=== PATIENT | female | born 1970 | race American Indian/Alaskan Native ===

== ENCOUNTER → 2020-04-20 16:07 | Outpatient (CLI) | payer BC, SELFPAY ==
[2020-04-20 17:45] LABS: Coronavirus 19 IgG Antibody Negative (Negative); Coronavirus 19 IgM Antibody Negative (Negative)
== END ==
PROVIDERS: Visit Provider Internal Medicine Gastroenterology
DX: Z01.818 Encounter for other preprocedural examination (principal); Z11.52 Encounter for screening for COVID-19; Z12.11 Encounter for screening for malignant neoplasm of colon
CPT/HCPCS: 36415; 86328

== ENCOUNTER 2020-04-23 08:57 | Day surgery (SDC) | payer BC, SELFPAY ==
[2020-04-17 10:03] VITALS: BMI 20.5
[2020-04-23] VITALS (7 sets, daily range): BP systolic 102–126; BP diastolic 60–78; PULSE 73–92; RESP 12–18; TEMP 36.2–36.4; O2SAT 97–100
--- NOTE | 2020-04-23 09:46 | P.PCN_ITS ---
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 The patient did have a colonoscopy in November 2016 (Dr. Orlando Thomas) which was performed previously because of iron deficiency anemia. At that time, she did have a 10 mm hyperplastic polyp removed from the rectum. She also had some small areas of focal mucosal bleeding that appeared to be related to small angiodysplasias and these were treated with APC coagulation at that time. The patient reports no abdominal pain, weight loss, change in her bowel habits or rectal bleeding. She reports no family history of colon cancer. Procedure: Prior to the procedure, a history and physical exam was performed, and patient's medications and allergies were reviewed. The risks, benefits and alternatives of the sedation and procedure were discussed with the patient. All questions were answered and informed consent was obtained. The patient was brought to the procedure room. Patient identification and proposed procedure were verified by the physician and the nurse. The patient was placed in a left lateral decubitus position and the scope was passed under direct vision. Throughout the procedure, the patient's blood pressure, pulse, and oxygen saturations were monitored continuously. The colonoscopy was accomplished without difficulty. The patient tolerated the procedure well. Findings: On digital rectal examination there was normal rectal tone. There were no external hemorrhoids. The colonoscope was introduced through the anal canal to the rectum and advanced to the cecum. The ileocecal valve and appendiceal orifice were identified. The scope was advanced a short distance into the ileum which appeared grossly normal. The scope was then withdrawn into the colon. Within the cecum was a 4 mm cecal colon polyp removed via cold snare polypectomy. The remaining cecum, ascending, transverse, descending, sigmoid and rectum were grossly normal. There were no mucosal abnormalities identified. Upon retroflexion within the rectum there were grade 1-2 internal hemorrhoids.The preparation was excellent throughout with [place] Preparation Score of nine. The cecal time was 12 minutes. Impression: 1. Diminutive cecal colon polyp Two. Grade 1-2 internal hemorrhoids Plan: I will follow up the polyp pathology and recommend repeat colonoscopy again in 5-10 years based upon the polyp histology. I would encourage bulk fiber supplementation on a long-term daily maintenance basis.
--- NOTE | 2020-04-23 10:10 | P.PN_ITS ---
[facility] Anesthesia Checklist - Patient Identification Patient Identification: Arm Band - Structural Data Admitted From: Home Planned Operative Procedure/s: colonoscopy Consent for Planned Operative Procedure(s) Verified: Yes Verified Documents: Surgical Consent, History and Physical - NPO Status Verified Time NPO: 00:00 - Additional verifications Anesthesia Reactions: No - Airway Assessment C-Spine Mobility Assessed: Yes (mp2) TMJ Mobility Assessed: Yes Dentition: Good Dentition - Neurological Assessment Level of Consciousness: Awake, Alert - Anesthesia Plan Anesthesia Risk discussed: Yes Anesthesia Plan: Verified ASA Class: I Anesthesia Type: MAC [facility] History I have reviewed the patient's past medical history: Yes Medical History: Denies:: Cancer, Diabetes Mellitus Type 1, Diabetes Mellitus Type 2, Internal Pacemaker, MRSA, Seizures *Have you ever received a pneumonia vaccine?: No *Have you received a flu vaccine this season?: Yes Anesthesia experience/problems:: nac Laterality Cases: Bilateral: Tonsillectomy Other Surgeries: No: Pacemaker Amputation: No Fractures: No - *Social History Last grade of school completed: Advanced degree Smoking Status: Never smoker Alcohol Intake: never Substance Use Type: denies use *Occupational Status:: employed Housing: house Household Members: spouse *Travel in the last 8 weeks: None Family Hx:: Diabetes, Hypertension
[2020-04-23 10:19] LABS: HCG Qualitative, Serum Negative (Negative)
== END 2020-04-23 10:50 | disposition home or self-care (01) ==
LOC: OUTP 09:02
PROVIDERS: Visit Provider Internal Medicine Gastroenterology
PROC: 0DJD8ZZ Inspection of Lower Intestinal Tract, Via Natural or Artificial Opening Endoscopic (ICD-10-PCS; CPT 45378; principal; 2020-04-23 10:00)
DX: Z12.11 Encounter for screening for malignant neoplasm of colon (principal); Z86.010 Personal history of colon polyps; K63.5 Polyp of colon; K64.0 First degree hemorrhoids; Z83.3 Family history of diabetes mellitus; Z82.49 Family history of ischemic heart disease and other diseases of the circulatory system
CPT/HCPCS: 45385; 84703